=== PATIENT | female | born 1985 | race African-American/Black ===

== ENCOUNTER 2016-05-23 12:27 | Emergency (ER) | payer MEDICAID ==
[~2016-05-23] VITALS: Ht 162.6 cm; Wt 81.6 kg
[2016-05-23 16:18] VITALS: BP 116/70
== END 2016-05-23 16:39 | disposition home or self-care (01) ==
LOC: ER 12:28
DX: N81.4 Uterovaginal prolapse, unspecified (principal); J45.909 Unspecified asthma, uncomplicated; F12.10 Cannabis abuse, uncomplicated

== ENCOUNTER 2017-03-15 13:09 | Emergency (ER) | payer MEDICAID ==
[~2017-03-15] VITALS: Ht 160 cm; Wt 81.6 kg
[2017-03-15 13:53] VITALS: BP 100/58
[2017-03-15 14:15] LABS: Basophils # (auto) 0 uL; Basophils % (auto) 0.5 % (0.0-2.0); Eosinophils # (auto) 0.1 uL; Eosinophils % (auto) 1.2 % (0.0-7.0); Hematocrit 38.8 % (36.0-46.0); Lymphocytes # (auto) 1.6 uL; Lymphocytes % (auto) 15.7 % (10.0-50.0); Mean Corpuscular Hemoglobin 27.4 pg (28.0-32.0); Mean Corpuscular Hgb Conc. 33.4 g/dL (32.0-36.0); Monocytes # (auto) 1.2 uL; Monocytes % (auto) 11.7 % (0.0-12.0); Neutrophils # (auto) 7.3 uL; Neutrophils % (auto) 70.9 % (37.0-80.0); Nucleated Red Blood Cells % 0.1 %; Platelet Count (auto) 331 10^3/uL (140-450); Red Blood Cells 4.74 10^6/uL (4.0-5.20); Red Cell Distribution Width 13.8 % (11.8-14.3); White Blood Cell 10.2 10^3/uL (4.4-10.8)
[2017-03-15 14:53] LABS: Albumin 3.8 g/dL (3.4-5.0); BUN/Creatinine Ratio 9.2; Bilirubin, Total 0.6 mg/dL (0.2-1.0); Calcium 8.8 mg/dL (8.5-10.1); Potassium 3.2 mmol/L (3.5-5.1); Total Protein 8.4 g/dL (6.4-8.2)
[2017-03-15 15:39] LABS: Urine Bacteria NONE SEEN /hpf (None Seen); Urine Blood Negative /uL (Negative); Urine Mucus FEW (None Seen); Urine Specific Gravity 1.029 (1.001-1.035); Urine WBC 2 /hpf (0 - 5)
== END 2017-03-16 00:43 | disposition left against medical advice (07) ==
LOC: ER 13:15
DX: R10.9 Unspecified abdominal pain (principal); Z53.21 Procedure and treatment not carried out due to patient leaving prior to being seen by health care provider
CPT/HCPCS: 36415; 80053; 81001; 81025; 82150; 83690; 85025